=== PATIENT | female | born 2000 | race Caucasian/White ===

== ENCOUNTER 2023-08-18 21:15 | Observation (INO) | payer MEDICAID ==
[~2023-08-18] VITALS: Ht 154.9 cm; Wt 93.9 kg
[2023-08-18] MEDS ORDERED: FERR325E14 PO (21:54)
[2023-08-18] MEDS ORDERED: PREN-543 PO (21:54)
[2023-08-18] MEDS ORDERED: ASPI-1822 PO (21:54)
[2023-08-18] MEDS ORDERED: VITA1TAB44 PO (21:54)
[2023-08-18 21:57] VITALS: BP 116/57; PULSE 86; RESP 18; TEMP 98.1
== END 2023-08-19 01:32 | disposition home or self-care (01) ==
LOC: MLD 21:15
PROVIDERS: ADMIT Obstetrics & Gynecology; ATTEND Obstetrics & Gynecology
DX: O36.8130 Decreased fetal movements, third trimester, not applicable or unspecified (principal); Z20.822 Contact with and (suspected) exposure to COVID-19; O14.93 Unspecified pre-eclampsia, third trimester; Z3A.32 32 weeks gestation of pregnancy
CPT/HCPCS: 76805; 76819; 87426; G0378; G0379; Q0092; 81000